=== PATIENT | male | born 1985 | race Caucasian/White ===

== ENCOUNTER 2022-01-22 08:28 | Emergency (ER) | payer MEDICAID ==
[~2022-01-22] VITALS: Ht 167.6 cm; Wt 77.0 kg
[2022-01-22 08:40] VITALS: BP 138/80
[2022-01-22] MEDS ORDERED: GABAPENTIN 100MG CAPSULE PO ONE (10:30)
[2022-01-22] MEDS ORDERED: GABA-529 MT (10:32)
== END 2022-01-22 11:01 | disposition home or self-care (01) ==
LOC: ER 08:28
DX: G62.9 Polyneuropathy, unspecified (principal)
CPT/HCPCS: 73564; 99283

== ENCOUNTER 2022-02-08 07:52 | Emergency (ER) | payer MEDICAID ==
[~2022-02-08] VITALS: Ht 165.1 cm; Wt 78.0 kg
[~2022-02-08 07:52] MED LIST: GABA-529 MT
[2022-02-08 08:00] VITALS: BP 117/79
[2022-02-08] MEDS ORDERED: ACETAMINOPHEN 325MG TABLET PO ONE (09:30)
[2022-02-08 09:46] LABS: CLARITY URINE CLEAR (CLEAR); COLOR URINE YELLOW (YELLOW); KETONES URINE TRACE (NEGATIVE); LEUKOCYTE ESTERASE URINE TRACE (NEGATIVE); NITRITE URINE NEGATIVE (NEGATIVE); OCCULT BLOOD URINE 2+ (NEGATIVE); PROTEIN URINE TRACE (NEGATIVE)
[2022-02-08 11:57] LABS: BASOPHILS % 0.5 % (0.0-2.0); EOSINOPHILS % 0.4 % (0.0-5.0); HEMOGLOBIN. 13.5 g/dL (14.0-18.0); MEAN CORPUSCULAR VOLUME 78.8 fL (80.0-94.0); MEAN PLATELET VOLUME 7.9 fl (7.4-10.4); NEUTROPHILS % 79.1 % (40.0-76.0); PLATELET 322 x1000/uL (130-400); RED BLOOD CELL COUNT 5.21 mill/uL (4.7-6.1)
[2022-02-08 12:04] LABS: CHLORIDE 102 mEq/L (98-107)
[2022-02-08] MEDS ORDERED: CIPR-263 MT (12:35)
[2022-02-08] MEDS ORDERED: TAMS-11 PO (12:35)
[2022-02-08] MEDS ORDERED: ACET-2708 MT (12:41)
[2022-02-08] MEDS ORDERED: IBUP-2028 MT (12:41)
== END 2022-02-08 12:58 | disposition home or self-care (01) ==
LOC: ER 07:52
DX: R10.9 Unspecified abdominal pain (principal); R30.0 Dysuria; Z87.442 Personal history of urinary calculi
CPT/HCPCS: 36415; 76770; 80053; 81003; 85025; 99284

== ENCOUNTER 2022-02-11 10:25 | Emergency (ER) | payer MEDICAID ==
[~2022-02-11] VITALS: Ht 167.6 cm; Wt 73.4 kg
[~2022-02-11 10:25] MED LIST changes: +ACET-2708 MT; +CIPR-263 MT; +IBUP-2028 MT; +TAMS-11 PO
[2022-02-11 10:29] VITALS: BP 125/82
[2022-02-11] MEDS ORDERED: KETOROLAC 60MG/2ML VIAL IM ONE (17:15)
[2022-02-11 17:35] LABS: CLARITY URINE TURBID (CLEAR); COLOR URINE YELLOW (YELLOW); KETONES URINE NEGATIVE (NEGATIVE); LEUKOCYTE ESTERASE URINE TRACE (NEGATIVE); NITRITE URINE NEGATIVE (NEGATIVE); OCCULT BLOOD URINE 1+ (NEGATIVE); PROTEIN URINE TRACE (NEGATIVE)
[2022-02-11 19:20] LABS: BASOPHILS % 0.6 % (0.0-2.0); EOSINOPHILS % 2.3 % (0.0-5.0); HEMATOCRIT. 38.8 % (42.0-52.0); HEMOGLOBIN. 12.5 g/dL (14.0-18.0); LYMPHOCYTES % 26.8 % (20.0-50.0); MEAN CORPUSCULAR HEMOGLOBIN 25.8 pg (28.0-32.0); MEAN CORPUSCULAR VOLUME 79.8 fL (80.0-94.0); MONOCYTES % 8.9 % (2.0-8.0); NEUTROPHILS % 61.4 % (40.0-76.0); PLATELET 282 x1000/uL (130-400); RED BLOOD CELL COUNT 4.86 mill/uL (4.7-6.1); RED CELL DISTRIBUTION WIDTH 15.6 % (11.6-14.6)
[2022-02-11 19:27] LABS: CHLORIDE 104 mEq/L (98-107)
[2022-02-11] MEDS ORDERED: IBUP-2028 MT (19:50)
== END 2022-02-11 20:04 | disposition home or self-care (01) ==
LOC: ER 11:10
DX: N20.0 Calculus of kidney (principal); N39.0 Urinary tract infection, site not specified
CPT/HCPCS: 36415; 74176; 80053; 81003; 83690; 85025; 96372; 99284; J1885; Z7610